=== PATIENT | female | born 1955 | race American Indian/Alaskan Native ===

== ENCOUNTER 2019-11-18 21:54 | Emergency (ER) | payer MEDICARE ==
[2019-11-18 22:33] VITALS: BP 134/68
[2019-11-18] MEDS ORDERED: ACETAMINOPHEN 325 MG TAB ONE (23:48)
--- NOTE | 2019-11-19 01:49 | Emergency Department Report ---
ED ENT HPI - General Chief complaint: Sore Throat Stated complaint: SORE THROAT Time Seen by Provider: 11/19/19 01:26 Source: patient Mode of arrival: Ambulatory Limitations: No Limitations - History of Present Illness Initial comments: 64-year-old -Spanish female presents to the emergency room complaining of left throat pain and painful to swallow since Wednesday at 3 PM. Patient states she has been taken Motrin. Patient reports that she feels much better today than yesterday. Patient states she has been using a mouth rinse that was given to her by her dentist. She does not have a history of of any recent sore throats. Her last pain medicine was 6 PM yesterday evening. She denies any fever or chills. MD complaint: sore throat Onset/Timin -: days(s) Location: throat Severity: moderate Severity scale (0 -10): 5 Quality: aching Consistency: intermittent Worsens with: swallowing Associated Symptoms: pain with swallowing, sore throat - Related Data Previous Rx's Medication Instructions Recorded Last Taken Type Cyclobenzaprine HCl [Flexeril 5 MG 5 mg PO QHS PRN #10 tab 03/05/19 Unknown Rx TAB] Naproxen 500 mg PO Q12H PRN #12 tablet 03/05/19 Unknown Rx Allergies Allergy/AdvReac Type Severity Reaction Status Date / Time No Known Allergies Allergy Verified 11/18/19 23:52 ED Dental HPI - General Chief complaint: Sore Throat Stated complaint: SORE THROAT Time Seen by Provider: 11/19/19 01:26 Source: patient Mode of arrival: Ambulatory Limitations: No Limitations - Related Data Previous Rx's Medication Instructions Recorded Last Taken Type Cyclobenzaprine HCl [Flexeril 5 MG 5 mg PO QHS PRN #10 tab 03/05/19 Unknown Rx TAB] Naproxen 500 mg PO Q12H PRN #12 tablet 03/05/19 Unknown Rx Allergies Allergy/AdvReac Type Severity Reaction Status Date / Time No Known Allergies Allergy Verified 11/18/19 23:52 ED Review of Systems ROS: Stated complaint: SORE THROAT Other details as noted in HPI Comment: All other systems reviewed and negative ED Past Medical Hx - Past Medical History Previous Medical History?: Yes Hx Hypertension: Yes Hx Psychiatric Treatment: Yes (Bipolar) - Surgical History Past Surgical History?: Yes Additional Surgical History: Right Knee and spine. - Social History Smoking Status: Never Smoker Substance Use Type: None - Medications Home Medications: Home Medications Medication Instructions Recorded Confirmed Last Taken Type Cyclobenzaprine HCl [Flexeril 5 MG 5 mg PO QHS PRN #10 tab 03/05/19 Unknown Rx TAB] Naproxen 500 mg PO Q12H PRN #12 tablet 03/05/19 Unknown Rx ED Physical Exam - General Limitations: No Limitations General appearance: alert, in no apparent distress - Head Head exam: Present: atraumatic, normocephalic - Eye Eye exam: Present: normal appearance - ENT ENT exam: Present: mucous membranes moist - Expanded ENT Exam Expanded Throat exam: Positive: tonsillar erythema. Negative: tonsillomegaly, tonsillar exudate, R peritonsillar mass, L peritonsillar mass - Neck Neck exam: Present: normal inspection, tenderness (Left side of trachea), full ROM. Absent: lymphadenopathy - Neurological Exam Neurological exam: Present: alert, oriented X3, normal gait - Psychiatric Psychiatric exam: Present: normal affect, normal mood - Skin Skin exam: Present: warm, dry, intact, normal color. Absent: rash ED Course Vital Signs 11/18/19 22:21 Temperature 98.2 F Pulse Rate 51 L Respiratory 18 Rate Blood Pressure 134/68 O2 Sat by Pulse 99 Oximetry ED Medical Decision Making - Medical Decision Making 64-year-old -Spanish female presents to the emergency room complaining of left throat pain and painful to swallow since Wednesday at 3 PM. Patient states she has been taken Motrin. Patient reports that she feels much better today than yesterday. Patient states she has been using a mouth rinse that was given to her by her dentist. She does not have a history of of any recent sore throats. Her last pain medicine was 6 PM yesterday evening. She denies any fever or chills. Patient was offered acetaminophen. She did accepted and then declined. Patient is requesting a Medicaid ride. I discussed the patient that this appears to be a virus she has no exudate no swelling mildly red. I did discuss the patient to follow-up with her ear nose and throat provider. Critical care attestation.: If time is entered above; I have spent that time in minutes in the direct care of this critically ill patient, excluding procedure time. ED Disposition Clinical Impression: Viral sore throat Disposition: DC-01 TO HOME OR SELFCARE Is pt being admited?: No Does the pt Need Aspirin: No Condition: Stable Instructions: Pharyngitis (ED) Additional Instructions: Continue with ibuprofen and add Tylenol. Warm salt gargles. Follow-up with your primary care provider or ear nose and throat provider. Referrals: PRIMARY CARE, [Primary Care Provider] - 3-5 Days [facility] D[facility] RN [Registered Nurse] - [facility] - 3-5 Days [facility]NT [facility] [Provider Group] - 3-5 Days
== END 2019-11-19 02:00 | disposition home or self-care (01) ==
LOC: ED 21:54
DX: J02.8 Acute pharyngitis due to other specified organisms (principal); B34.9 Viral infection, unspecified; I10 Essential (primary) hypertension; F31.9 Bipolar disorder, unspecified; Z98.890 Other specified postprocedural states; Z79.899 Other long term (current) drug therapy
CPT/HCPCS: 99282

== ENCOUNTER 2021-05-11 03:01 | Emergency (ER) | payer MEDICARE ==
[2021-05-11 03:35] VITALS: BP 129/75
[2021-05-11] MEDS ORDERED: LIDOCAINE-MPF (1%) 10 MG/1 ML VIAL 5 ML INFILTRATI ONE (03:54)
--- NOTE | 2021-05-11 04:36 | Emergency Department Report ---
ED General Adult HPI - General Chief complaint: Dental/Oral Stated complaint: POSS ORAL STD Source: patient Mode of arrival: Ambulatory Limitations: No Limitations - History of Present Illness Initial comments: Patient is a 65-year-old -[place] female with a history of bipolar disorder and hypertension who presents to the ED with complaint of acute onset mild sore throat after having unprotected oral sex 5 days ago. Patient states that her sexual partner contacted her and told her to come get checked because he had been diagnosed with an STD which he did not disclose. Patient denies fever, chills, nausea, vomiting, dizziness, syncope, dysuria, urinary frequency and urgency, vaginal discharge or vaginal bleeding. MD Complaint: Sore throat; exposure to STD -: Sudden, days(s) (2) Location: mouth Radiation: non-radiation Severity scale (0 -10): 3 Quality: aching, dull Consistency: constant Improves with: none Worsens with: eating Associated Symptoms: denies other symptoms. denies: confusion, chest pain, cough, diaphoresis, fever/chills, headaches, loss of appetite, malaise, nausea/vomiting, rash, shortness of breath, syncope, weakness Treatments Prior to Arrival: none - Related Data Previous Rx's Medication Instructions Recorded Last Taken Type Cyclobenzaprine HCl [Flexeril 5 MG 5 mg PO QHS PRN #10 tab 03/05/19 Unknown Rx TAB] Doxycycline Hyclate 100 mg PO Q12H #28 cap 05/11/21 Unknown Rx Naproxen 500 mg PO Q12H PRN #20 tablet 05/11/21 Unknown Rx Allergies Allergy/AdvReac Type Severity Reaction Status Date / Time No Known Allergies Allergy Verified 11/18/19 23:52 ED Review of Systems ROS: Stated complaint: POSS ORAL STD Other details as noted in HPI Constitutional: denies: chills, fever Eyes: denies: eye pain, eye discharge, vision change ENT: throat pain. denies: ear pain Respiratory: denies: cough, shortness of breath, wheezing Cardiovascular: denies: chest pain, palpitations Endocrine: no symptoms reported Gastrointestinal: denies: abdominal pain, nausea, diarrhea Genitourinary: denies: urgency, dysuria, discharge Musculoskeletal: denies: back pain, joint swelling, arthralgia Skin: denies: rash, lesions Neurological: denies: headache, weakness, paresthesias Psychiatric: denies: anxiety, depression Hematological/Lymphatic: denies: easy bleeding, easy bruising ED Past Medical Hx - Past Medical History Hx Hypertension: Yes Hx Psychiatric Treatment: Yes (Bipolar) - Surgical History Additional Surgical History: Right Knee and spine. - Social History Smoking Status: Never Smoker Substance Use Type: None - Medications Home Medications: Home Medications Medication Instructions Recorded Confirmed Last Taken Type Cyclobenzaprine HCl [Flexeril 5 MG 5 mg PO QHS PRN #10 tab 03/05/19 Unknown Rx TAB] Doxycycline Hyclate 100 mg PO Q12H #28 cap 05/11/21 Unknown Rx Naproxen 500 mg PO Q12H PRN #20 tablet 05/11/21 Unknown Rx ED Physical Exam - General Limitations: No Limitations General appearance: alert, in no apparent distress - Head Head exam: Present: atraumatic, normocephalic, normal inspection - Eye Eye exam: Present: normal appearance, PERRL, EOMI Pupils: Present: normal accommodation - ENT ENT exam: Present: normal exam, normal orophraynx, mucous membranes moist, TM's normal bilaterally, normal external ear exam - Neck Neck exam: Present: normal inspection, full ROM. Absent: tenderness - Respiratory Respiratory exam: Present: normal lung sounds bilaterally. Absent: respiratory distress, wheezes, rales, rhonchi, stridor, chest wall tenderness, accessory muscle use, decreased breath sounds, prolonged expiratory - Cardiovascular Cardiovascular Exam: Present: regular rate, normal rhythm, normal heart sounds. Absent: systolic murmur, diastolic murmur, rubs, gallop - GI/Abdominal GI/Abdominal exam: Present: soft, normal bowel sounds. Absent: tenderness, guarding, rebound, hyperactive bowel sounds, hypoactive bowel sounds, organomegaly, mass - Extremities Exam Extremities exam: Present: normal inspection, full ROM, normal capillary refill. Absent: tenderness - Back Exam Back exam: Present: normal inspection, full ROM. Absent: tenderness, CVA tenderness (R), CVA tenderness (L), muscle spasm, paraspinal tenderness, vertebral tenderness, rash noted - Neurological Exam Neurological exam: Present: alert, oriented X3, CN II-XII intact, normal gait, reflexes normal - Psychiatric Psychiatric exam: Present: normal affect, normal mood - Skin Skin exam: Present: warm, dry, intact, normal color. Absent: rash ED Course Vital Signs 05/11/21 03:25 Temperature 98.0 F Pulse Rate 67 Respiratory 16 Rate Blood Pressure 129/75 O2 Sat by Pulse 96 Oximetry ED Medical Decision Making - Medical Decision Making This is a 65-year-old -[place] female with a history of bipolar disorder and hypertension who presents to the ED with complaint of acute onset mild sore throat after having unprotected oral sex 5 days ago. Patient states that her sexual partner contacted her and told her to come get checked because he had been diagnosed with an STD which he did not disclose. In the ED, patient is alert and oriented x3 and is not in any distress but anxious. Patient was empirically treated in the ED with Rocephin 1 g intramuscular injection for suspected gonorrhea infection. Patient was thereafter discharged home on doxycycline for suspected chlamydia infection. Patient was advised to follow-up with the [facility] for further STD testing including syphilis and HIV. Patient is advised return to the ED immediately if symptoms get worse. - Differential Diagnosis STD; gonorrhea; chlamydia; strep pharyngitis Critical care attestation.: If time is entered above; I have spent that time in minutes in the direct care of this critically ill patient, excluding procedure time. ED Disposition Clinical Impression: Possible exposure to STD, STD (sexually transmitted disease) Acute pharyngitis Qualifiers: Pharyngitis/tonsillitis etiology: other specified organisms Qualified Code(s): J02.8 - Acute pharyngitis due to other specified organisms Disposition: HOME / SELF CARE / HOMELESS Is pt being admited?: No Does the pt Need Aspirin: No Condition: Stable Instructions: Safe Sex, Pharyngitis, [id number], Chlamydia, Female, [id number], Gonorrhea Additional Instructions: Take medication with food, drink plenty of fluids and follow-up with a [facility] department for further STD testing including HIV and syphilis. Follow-up with your primary care physician as needed. Return to the ED immediately if symptoms get worse. Prescriptions: Doxycycline Hyclate 100 mg PO Q12H #28 cap Naproxen 500 mg PO Q12H PRN #20 tablet PRN Reason: pain Referrals: [facility] [Outside] - 7-10 days Time of Disposition: 04:39 Print Language: INDIAN
== END 2021-05-11 05:25 | disposition home or self-care (01) ==
LOC: ED 03:01
DX: J02.9 Acute pharyngitis, unspecified (principal); Z20.2 Contact with and (suspected) exposure to infections with a predominantly sexual mode of transmission
CPT/HCPCS: 96372; 99282; J0696; J3490